=== PATIENT | male | born 1970 ===

== ENCOUNTER 2017-06-21 18:20 | Emergency (ER) | payer OTHER ==
[~2017-06-21 18:20] MED LIST: ALBU90I INH; AMOCLA875 PO; AMOX500 PO; BUPR1 PO; CLON1 PO; CRUTCH4 USE; HYDACE5 PO; Klonopin1 MG PO; METCAR500 PO; NAPR500 PO; OXYACE5T PO; PENVK500 PO; Percocet 5-3251 EACH PO; SUBOXONE; Ultram50 MG PO; Valium5 MG PO; [UNRECOGNIZED DRUG - OTHER]
== END 2017-06-21 18:43 | disposition left against medical advice (07) ==
LOC: ER 18:20
DX: Z53.21 Procedure and treatment not carried out due to patient leaving prior to being seen by health care provider (principal)

== ENCOUNTER → 2019-02-17 | Outpatient (CLI) | payer OTHER ==
[2019-02-20 01:06] LABS: CHLAMYDIA TRACHOMATIS, NAA Negative (Negative); NEISSERIA GONORRHOEAE, NAA Negative (Negative)
== END | disposition home or self-care (01) ==
LOC: LAB SHORT 18:25 → LAB 18:25
PROVIDERS: Family Medicine
DX: R35.0 Frequency of micturition (principal)
CPT/HCPCS: 87491; 87591

== ENCOUNTER 2023-05-09 16:04 | Emergency (ER) | payer OTHER ==
[~2023-05-09] VITALS: Ht 180.3 cm; Wt 63.5 kg
[2023-05-09 16:14] VITALS: BP 168/103
[2023-05-09] MEDS ORDERED: DULO60 PO (16:17)
[2023-05-09] MEDS ORDERED: CYCL10 PO (17:11)
== END 2023-05-09 17:21 | disposition home or self-care (01) ==
LOC: ER 16:04
DX: M54.41 Lumbago with sciatica, right side (principal); F17.200 Nicotine dependence, unspecified, uncomplicated; Z79.899 Other long term (current) drug therapy
CPT/HCPCS: 96372; 99282-25; J1885

== ENCOUNTER 2023-05-23 02:29 | Emergency (ER) | payer OTHER ==
[~2023-05-23] VITALS: Ht 180.3 cm; Wt 63.5 kg
[~2023-05-23 02:29] MED LIST changes: +CYCL10 PO; +DULO60 PO
[2023-05-23] MEDS ORDERED: LIDO700A20 TOP (04:10)
== END 2023-05-23 04:15 | disposition home or self-care (01) ==
LOC: ER 02:29
DX: S39.012A Strain of muscle, fascia and tendon of lower back, initial encounter (principal); Z87.39 Personal history of other diseases of the musculoskeletal system and connective tissue; F17.200 Nicotine dependence, unspecified, uncomplicated; Z79.899 Other long term (current) drug therapy; X58.XXXA Exposure to other specified factors, initial encounter
CPT/HCPCS: 99283